=== PATIENT | female | born 1995 | race Caucasian/White ===

== ENCOUNTER 2019-03-07 12:45 | Emergency (ER) | payer BC, SELFPAY ==
[~2019-03-07] VITALS: Ht 180.3 cm; Wt 102.3 kg
[2019-03-07] MEDS ORDERED: NAPR250T4 PO (12:53)
[2019-03-07 13:20] LABS: BASO % 0.4 % (0.0-1.0); EOS # 0.3 10^3/uL (0.0-0.5); EOS % 2.5 % (0.0-3.0); HEMATOCRIT 39.9 % (36.0-47.0); HEMOGLOBIN 12.6 g/dl (12.0-15.5); LYMPH # 2.4 10^3/uL (1.5-5.0); LYMPH % 21.1 % (24.0-44.0); MEAN CORPUSCULAR HEMOGLOBIN 27.6 pg (27.0-33.0); MEAN CORPUSCULAR HGB CONC 31.6 g/dl (32.0-36.5); MEAN CORPUSCULAR VOLUME 87.3 fl (80.0-96.0); MONO # 0.7 10^3/uL (0.0-0.8); MONO % 5.9 % (0.0-5.0); NEUTROPHILS # 7.8 10^3/uL (1.5-8.5); NEUTROPHILS % 69.7 % (36.0-66.0); PLATELET COUNT, AUTOMATED 413 10^3/uL (150-450); RED BLOOD COUNT 4.57 10^6/uL (4.00-5.40); WHITE BLOOD COUNT 11.2 10^3/uL (4.0-10.0)
[2019-03-07 13:56] LABS: ALBUMIN 3.8 GM/DL (3.2-5.2); ALT/SGPT 25 U/L (12-78); BILIRUBIN,DIRECT < 0.1 MG/DL (0.0-0.2); BILIRUBIN,TOTAL 0.3 MG/DL (0.2-1.0); LIPASE 133 U/L (73-393); TOTAL PROTEIN 7.7 GM/DL (6.4-8.2)
[2019-03-07] MEDS ORDERED: NS 1,000 ML IV ONE (14:00)
[2019-03-07] MEDS ORDERED: KETOROLAC 30 MG/ML VIAL (J1885) IV ONE (14:00)
[2019-03-07] MEDS ORDERED: ONDANSETRON 4MG/2ML VIAL (J2405) IV ONE (14:00)
--- NOTE | 2019-03-07 14:51 | REP ---
REASON: Left flank pain. PRIORS: None. The lung bases are clear with the exception of minimal subsegmental atelectatic change in the right lower lobe. Limited evaluation of the solid intra-abdominal organs and gallbladder show no gross abnormalities. Limited evaluation of the pancreas and adrenal glands show no gross abnormalities. The right kidney and renal collecting system are normal in appearance. There is slight left hydronephrosis. In the proximal left ureter, there is a 1-2 millimeter sized calcification consistent with a proximal ureterolith. There are left-sided pelvis phleboliths. There is trace amount of free pelvic fluid likely physiologic. Limited evaluation of the abdominal aorta and para-aortic regions show no gross abnormalities. Limited evaluation of the bowel loops and their mesenteries show no gross abnormalities. Bone window technique throughout the exam shows the osseous structures to be within normal limits. IMPRESSION: Tiny proximal ureterolith on the left with resultant findings as described above. Electronically Signed by Cordell Maddox DO 03/07/2019 04:43 P
[2019-03-07] MEDS ORDERED: FLOM0.4C39 PO (14:57)
[2019-03-07] MEDS ORDERED: NORC1TAB7 PO (14:57)
[2019-03-07] MEDS ORDERED: ONDA4TAB6 PO (14:57)
[2019-03-07] MEDS ORDERED: IBUP80TA PO (14:57)
[2019-03-07 15:02] VITALS: BP 148/64
== END 2019-03-07 15:28 | disposition home or self-care (01) ==
LOC: M ED 12:45
DX: N20.1 Calculus of ureter (principal); N13.30 Unspecified hydronephrosis; I87.8 Other specified disorders of veins; F17.210 Nicotine dependence, cigarettes, uncomplicated; Z88.8 Allergy status to other drugs, medicaments and biological substances; Z79.899 Other long term (current) drug therapy
CPT/HCPCS: 74176; 80047; 80076; 81001; 83690; 84702; 85025; 96361; 96374; 96375; 99284; J1885; J2405